=== PATIENT | female | born 1970 ===

== ENCOUNTER → 2020-06-29 15:00 | Outpatient (CLI) | payer OTHER | END | disposition home or self-care (01) | LOC: PPH VACUNA 15:00 | DX: Z23 Encounter for immunization (principal) ==

== ENCOUNTER → 2020-07-20 08:30 | Outpatient (CLI) | payer OTHER | END | disposition home or self-care (01) | LOC: PPH VACUNA 08:30 | DX: Z23 Encounter for immunization (principal) ==

== ENCOUNTER 2024-03-19 10:50 | Outpatient (CLI) | payer OTHER | END 2024-03-19 10:53 | disposition home or self-care (01) | LOC: SONOGRAMA 10:50 | PROVIDERS: ATTEND Pathology Anatomic Pathology | DX: E04.1 Nontoxic single thyroid nodule (principal); D34 Benign neoplasm of thyroid gland; E07.89 Other specified disorders of thyroid ==